=== PATIENT | female | born 1995 | race African-American/Black ===

== ENCOUNTER 2024-10-10 08:07 | Emergency (ER) | payer MEDICARE, MEDICAID ==
[~2024-10-10] VITALS: Ht 154.9 cm; Wt 55.0 kg
[2024-10-10 08:10] VITALS: O2SAT 96
[2024-10-10] MEDS: SODIUM CHLORIDE 0.9% 1,000 ML IV ONE (08:26)
[2024-10-10] MEDS: ONDANSETRON HCL 4MG/2ML INJ IV STA (08:27)
[2024-10-10] MEDS: MORPHINE SULFATE 4 MG/ML INJ (FOR IV/IM USE) IV STA (08:27)
[2024-10-10] MEDS ORDERED: MORPHINE SULFATE 10 MG/ML INJ (NOT FOR IM USE) IV ONE (08:45)
[2024-10-10 08:51] LABS: BASOPHILS % 0.8 % (0.0-2.0); EOSINOPHILS % 1.3 % (0.0-5.0); HEMATOCRIT. 31.5 % (36.0-48.0); HEMOGLOBIN. 10.7 g/dL (12.0-16.0); LYMPHOCYTES % 19.1 % (20.0-50.0); MEAN CORPUSCULAR HEMOGLOBIN 31.1 pg (28.0-32.0); MEAN CORPUSCULAR VOLUME 91.3 fL (81.0-99.0); MEAN PLATELET VOLUME 8.2 fl (7.4-10.4); MONOCYTES % 7.5 % (2.0-8.0); NEUTROPHILS % 71.3 % (40.0-76.0); PLATELET 287 x1000/uL (130-400); RED BLOOD CELL COUNT 3.45 mill/uL (4.2-5.4); RED CELL DISTRIBUTION WIDTH 15.3 % (11.6-14.6); WHITE BLOOD COUNT 16.6 x1000/uL (4.5-11.0)
[2024-10-10 08:58] LABS: CHLORIDE 114 mEq/L (98-107); POTASSIUM 3.9 mEq/L (3.5-5.1); SODIUM 144 mEq/L (136-145)
[2024-10-10] MEDS: MORPHINE SULFATE 4 MG/ML INJ (FOR IV/IM USE) IV ONE (08:58)
[2024-10-10 08:59] LABS: CARBON DIOXIDE 24 mEq/L (21-32)
[2024-10-10 09:00] LABS: CALCIUM 9.4 mg/dL (8.7-10.4); DIFFERENTIAL COMMENT 1
[2024-10-10 09:05] LABS: CREATININE 0.7 mg/dL (0.6-1.0); GLUCOSE 100 mg/dL (70-105); UREA NITROGEN BLOOD 10 mg/dL (9-23)
[2024-10-10 09:09] LABS: ETHANOL BLOOD < 10 mg/dL (<10)
[2024-10-10 09:10] LABS: HCG SCREEN NEGATIVE
[2024-10-10 10:36] LABS: SICKLE CELL SCREEN POSITIVE (NEGATIVE)
[2024-10-10] MEDS: SODIUM CHLORIDE 0.45% 1,000 ML IV SCH (13:15)
[2024-10-10] MEDS ORDERED: MAGNESIUM/ALUMINUM HYDROXIDE/SIMETHICONE 30ML UDC PO PRN (13:15)
[2024-10-10] MEDS ORDERED: DOCUSATE SODIUM 100MG CAPSULE PO PRN (13:15)
[2024-10-10] MEDS ORDERED: ACETAMINOPHEN 325MG TABLET PO PRN ×2 (13:15)
[2024-10-10] MEDS ORDERED: GUAIFENESIN 200MG/10ML SUGAR FREE UDC PO PRN (13:15)
[2024-10-10] MEDS ORDERED: IPRATROPIUM/ALBUTEROL 0.5-3(2.5)MG/3ML NEB HHN PRN (13:15)
[2024-10-10] MEDS ORDERED: CLONIDINE 0.1MG TABLET PO PRN (13:15)
[2024-10-10] MEDS ORDERED: ONDANSETRON HCL 4MG/2ML INJ IV PRN (13:15)
[2024-10-10] MEDS: MORPHINE SULFATE 4 MG/ML INJ (FOR IV/IM USE) IV PRN (13:25)
[2024-10-10 13:30] VITALS: BP 121/52; PULSE 63; RESP 14; O2SAT 100
[2024-10-10] MEDS: ENOXAPARIN 40MG/0.4ML SYR SUBCUT SCH (13:48)
[2024-10-10] MEDS ORDERED: NALOXONE HCL 0.4MG/ML VIAL IV PRN (14:00)
[2024-10-10] MEDS ORDERED: NALO4SPR BOTHNSTRLS (14:12)
[2024-10-10] MEDS ORDERED: HYDR-4001 PO (14:12)
[2024-10-11] MEDS ORDERED: PANTOPRAZOLE SODIUM 40 MG/VIAL IV SCH (09:00)
== END 2024-10-10 14:26 | disposition home or self-care (01) ==
LOC: ER 08:27 → EDBEDREQTM 11:08 → EDBEDREQ 11:08 → CANBEDREQ 14:25 → ER 14:26
DX: D57.00 Hb-SS disease with crisis, unspecified (principal); Z88.0 Allergy status to penicillin; Z90.49 Acquired absence of other specified parts of digestive tract; Z90.721 Acquired absence of ovaries, unilateral; Z90.81 Acquired absence of spleen; Z91.51 Personal history of suicidal behavior
CPT/HCPCS: 80048; 80320; 84703; 85660; 85025; 85610; 86850; 86870; 86900; 86901; 36415; 96361; 96374; 96375; 96376; 99291; J2405; J2270; J7030; G0480